=== PATIENT | female | born 1945 ===

== ENCOUNTER 2016-12-04 07:59 | Day surgery (SDC) | payer OTHER ==
[2016-12-04] MEDS ORDERED: Lidocaine 2% Inj (20ml) ONE (10:18)
[2016-12-04] MEDS ORDERED: Iohexol 350mgl/ml 50 ML ONE (10:19)
[2016-12-04] MEDS ORDERED: Iodixanol 320 MG/ML 200 ML BOTTLE IV ONE (10:19)
[2016-12-04] MEDS ORDERED: Nitroglycerin 50mg in D5W 0 MG/0 ML BOTTLE IV ONE (10:19)
[2016-12-04] MEDS ORDERED: Midazolam 2 MG/2 ML VIAL ONE (10:32)
[2016-12-04] MEDS ORDERED: Oxycodone/Acetaminophen 5/325 mg Tab PO PRN (11:34)
[2016-12-04 12:45] VITALS: TEMP 97.6
[2016-12-04 13:44] VITALS: RESP 18
[2016-12-04 13:55] VITALS: BP 153/62; PULSE 62
--- NOTE | 2016-12-04 16:09 | CARD ---
APPROVED REPORT EKG Measurement Heart [id number] <Conclusion> Normal sinus rhythm Possible Left atrial enlargement Left ventricular hypertrophy Abnormal ECG
--- NOTE | 2016-12-07 13:54 | CARDCATH ---
PROCEDURE DATE: 12/04/2016 PROCEDURES: Left anterior descending coronary artery, balloon angioplasty and drug-eluting stent amada cement. CLINICAL INDICATIONS: 1. Unstable angina. 2. History of coronary artery disease status post stents. 3. Hypertension. 4. Hyperlipidemia. 5. Chronic kidney disease on hemodialysis. PERFORMING PHYSICIAN: Dr. Ric Pierson. PROCEDURE: After informed consent, the patient was prepped and draped in the usual sterile fashion. Lidocaine, 2% was given in the left groin for local anesthesia. Using micropuncture technique, 6-Fr ench sheath was introduced into the left common femoral artery. The patient was preloaded with aspirin, Plavix and IV heparin. ACT was maintained about 250 througho ut the procedure. Left main coronary artery was engaged using the XB LAD 3.5 guided catheter. Initial angiogram has re vealed mid LAD 80% concentric stenosis. Distal LAD 99% in-stent restenosis. There was a MISTY-2 dist al flow noted prior to intervention. Runthrough coronary wire threaded into left anterior descending coronary artery. Both the distal LAD and mid LAD lesions were predilated using 2.5 x 12 NC Trek bal loon. Distal LAD was stented using the 3.0 x 15 Xience Alpine drug-eluting stent. Mid LAD was stent ed using 3.5 x 15 Xience Alpine drug-eluting stent. Excellent final angiographic results with brisk MISTY-3 flow noted. Post procedure, the left sheath was removed from the left common femoral artery and Perclose suture d eployed. Excellent hemostasis. The patient will be transferred back to [facility] . Ric Pierson MD cc: [id number] TT: 12/07/2016 13:54:00 [email or web address]
== END 2016-12-04 16:52 | disposition short-term general hospital (02) ==
LOC: CATH 07:59 → 2RSO 11:44 → CATH 16:52
PROVIDERS: ATTEND Internal Medicine Cardiovascular Disease
DX: I25.110 Atherosclerotic heart disease of native coronary artery with unstable angina pectoris (principal); E78.5 Hyperlipidemia, unspecified; I12.0 Hypertensive chronic kidney disease with stage 5 chronic kidney disease or end stage renal disease; N18.6 End stage renal disease; Z99.2 Dependence on renal dialysis; Z95.5 Presence of coronary angioplasty implant and graft
CPT/HCPCS: 85175; 93005; 99152; C1725 ×2; C1760; C1769 ×2; C1874 ×2; C1887; C2629; C9600; J0360; J1644 ×2; J2250; J3010; Q9967